=== PATIENT | female | born 1975 | race Caucasian/White ===

== ENCOUNTER → 2017-01-25 | Outpatient (CLI) | payer OTHER ==
[~2017-01-25] MED LIST: GLYB5TAB3 PO; MULT-65 PO; OXYC1SOL5 PO
== END ==
LOC: CPRE 10:55
PROVIDERS: ATTEND Obstetrics & Gynecology
DX: Z01.812 Encounter for preprocedural laboratory examination (principal); N92.0 Excessive and frequent menstruation with regular cycle

== ENCOUNTER 2017-01-31 06:07 | Observation (INO) | payer OTHER ==
[~2017-01-31] VITALS: Ht 175.3 cm; Wt 141.8 kg
[~2017-01-31 06:07] MED LIST changes: -GLYB5TAB3 PO; -OXYC1SOL5 PO
[2017-01-31] MEDS ORDERED: BUPIVACAINE/EPINEPHRINE 0.25% PF 30 ML VIAL ONE (06:55)
[2017-01-31] MEDS ORDERED: ESTROGENS CONJUGATED VAG CREA 15 APPL/30 GM TUBE ONE (06:56)
[2017-01-31] MEDS ORDERED: SUGAMMADEX SODIUM 200 MG/2 ML VIAL IV PUSH ONE ×2 (07:04)
[2017-01-31] MEDS ORDERED: ACETAMINOPHEN 1000 MG/100 ML 100 ML IV ONE (07:05)
[2017-01-31] MEDS ORDERED: LACTATED RINGER'S 1000 ML IV PRN (07:15)
[2017-01-31] MEDS ORDERED: INSULIN HUMAN REGULAR 1,000 UNITS/10 ML VIAL SQ PRN (07:15)
[2017-01-31] MEDS ORDERED: CHLORHEXIDINE GLUCONATE 2 % 1 PACK (2 CLOTHS) TOPICAL PRN (07:15)
[2017-01-31] MEDS ORDERED: METOPROLOL TARTRATE 25 MG TAB PO PRN (07:15)
[2017-01-31] MEDS ORDERED: SODIUM CHLORID 0.9% 500 ML IV PRN (07:15)
[2017-01-31] MEDS ORDERED: ceFAZolin 3,000 MG/NS 100 ML IV SCH ×2 (07:15)
[2017-01-31] MEDS ORDERED: POVIDONE IODINE 5% (ANTISEPSIS KIT) 4 APPLICATIONS EACH NARE PRN (07:15)
[2017-01-31] MEDS ORDERED: FAMOTIDINE 20 MG/2 ML VIAL ONE (07:34)
[2017-01-31] MEDS ORDERED: diphenhydrAMINE HCL 25 MG CAP PO PRN (11:30)
[2017-01-31] MEDS ORDERED: SODIUM CHLORIDE 0.9% FLUSH 10 ML FLUSH IV FLUSH PRN (11:30)
[2017-01-31] MEDS ORDERED: ONDANSETRON HCL 4 MG/2 ML VIAL IVP PRN (11:30)
[2017-01-31] MEDS ORDERED: oxyCODONE/ACETAMINOPHEN 5 MG/325 MG TAB PO PRN ×2 (11:30)
[2017-01-31] MEDS ORDERED: ZOLPIDEM TARTRATE 5 MG TAB PO PRN (11:30)
[2017-01-31] MEDS ORDERED: LORazepam 0.5 MG TAB PO PRN (11:30)
[2017-01-31] MEDS ORDERED: DO NOT ADM ANY ANTICOAGULANT DRUGS PRN (11:43)
--- NOTE | 2017-01-31 11:43 | HHI.PR ---
Immediate Post Op Note Procedure Date: Jan 31, 2017 Pre Op Diagnosis: (1) Ovarian mass, right (2) Premenopausal menorrhagia (3) Morbid obesity with BMI of 50.0-59.9, adult Post Op Diagnosis: (1) Ovarian mass, right (2) Premenopausal menorrhagia (3) Advanced maternal age in multigravida (4) Abdominal hernia Surgeon: Grace Robledo Stay Cutter(s): Elissa Correa MD Procedure: Exam under anesthesia, laparoscopic assisted vaginal hysterectomy, bilateral salpingectomy, right oopherectomy Findings: abdominal hernia, uterus sounded to 9 cm, bilateral tubes with evidence of prior ligation, bilateral ovaries with normal appearance. Abdominal hernia with omental adhesions Complications: none Specimen(s) removed: bilateral tubes,right ovary, uterus with cervix Anesthesia: General Drains: None Fluids: 4500mL IVF Urinary Output (mLs): 150 Patient to: PACU Patient Condition: Good Grace Robledo MD Jan 31, 2017 11:43
[2017-01-31] MEDS ORDERED: *MEPERIDINE 25 MG INJ VIAL PERIprocedural Use ONLY ONE (11:50)
[2017-01-31] MEDS: SODIUM CHLORIDE 0.9% FLUSH 10 ML FLUSH IV FLUSH SCH ×2 (12:00→21:00)
[2017-01-31] MEDS ORDERED: LIDOCAINE HCL 1% PF 5 ML SYRINGE OTHER ONE (12:00)
[2017-01-31] MEDS ORDERED: DEXAMETHASONE SOD PHOS 4 MG/ML VIAL IV ONE (12:00)
[2017-01-31] MEDS ORDERED: MIDAZOLAM HCL 2 MG/2 ML VIAL IV ONE (12:00)
[2017-01-31] MEDS ORDERED: PROPOFOL 200 MG/20 ML AMP IV ONE (12:00)
[2017-01-31] MEDS ORDERED: KETOROLAC TROMETHAMINE 30 MG/ML (IVP) VIAL IV PUSH ONE (12:00)
[2017-01-31] MEDS: LACTATED RINGER'S 1000 ML INJ 1,000 ML IV SCH ×2 (12:00→21:08)
[2017-01-31] MEDS ORDERED: PILL SPLITTER OTHER PRN (12:00)
[2017-01-31] MEDS ORDERED: ROCURONIUM INJ 50 MG/5 ML SYRINGE IV PUSH ONE (12:00)
[2017-01-31] MEDS ORDERED: ceFAZolin INJ 1,000 MG VIAL IV ONE (12:00)
[2017-01-31] MEDS ORDERED: GLYCOPYRROLATE 1 MG/5 ML SYRINGE IV PUSH ONE (12:00)
[2017-01-31] MEDS ORDERED: NEOSTIGMINE 5 MG/5 ML SYRINGE IV PUSH ONE (12:00)
[2017-01-31] MEDS ORDERED: LACTATED RINGER'S 1000 ML INJ 2,000 ML IV ONE (12:00)
[2017-01-31] MEDS ORDERED: ONDANSETRON HCL 4 MG/2 ML VIAL IV ONE (12:00)
[2017-01-31] MEDS: ACETAMINOPHEN 1000 MG/100 ML 100 ML IV SCH ×2 (12:15→18:19)
[2017-01-31 12:55] VITALS: BP 145/83; PULSE 75; RESP 16; TEMP 97.7; O2SAT 98
[2017-01-31] MEDS ORDERED: MORPHINE SULFATE 2 MG/ML INJ IV PRN (13:00)
[2017-01-31] MEDS ORDERED: NALOXONE HCL 0.4 MG/ML AMP IV PUSH PRN (14:30)
[2017-01-31 15:00] VITALS: BP 137/71; PULSE 79; RESP 20; O2SAT 97
[2017-01-31] MEDS: MORPHINE SULFATE 30 MG/30 ML PCA IV SCH ×2 (15:00→23:10)
[2017-01-31 16:07] VITALS: BP 118/61; PULSE 79; RESP 15; RESP 20; TEMP 98.1; O2SAT 96
[2017-01-31 17:30] VITALS: BP 123/69; PULSE 80; RESP 16; TEMP 98.2; O2SAT 96
[2017-01-31] MEDS: KETOROLAC TROMETHAMINE 30 MG/ML (IVP) VIAL IVP SCH (18:00)
[2017-01-31 20:00] VITALS: BP 113/63; PULSE 83; RESP 16; TEMP 98; O2SAT 99
[2017-01-31] MEDS ORDERED: DOCUSATE SODIUM 50 MG/SENNA 8.6 MG TAB PO SCH (21:00)
[2017-01-31] MEDS ORDERED: PCA - TOTAL MG MORPHINE DELIVERED PER SHIFT SCH (22:00)
[2017-02-01] VITALS: BP 112/55; PULSE 82; RESP 18; TEMP 98; O2SAT 95
[2017-02-01] MEDS: KETOROLAC TROMETHAMINE 30 MG/ML (IVP) VIAL IVP SCH ×2 (01:17→06:47)
[2017-02-01] MEDS: ACETAMINOPHEN 1000 MG/100 ML 100 ML IV SCH (02:25)
[2017-02-01 04:00] VITALS: BP 98/55; PULSE 74; RESP 16; TEMP 97.9; O2SAT 97
[2017-02-01 05:56] LABS: BASOPHIL % 0.1 % (0.0-2.0); HEMATOCRIT 32.8 % (35.0-46.0); HEMO FLAGS DIFF FINAL; LYMPH % 13.6 % (9.0-44.0); LYMPHOCYTE # 1.8 TH/MM3 (1.0-4.8); MEAN CELL VOLUME 84.6 FL (80.0-100.0); MEAN CORPUSCULAR HEMOGLOBIN 26.8 PG (27.0-34.0); MEAN CORPUSCULAR HGB CONC 31.7 % (32.0-36.0); MONO % 4.2 % (0.0-8.0); NEUT % 82.1 % (16.0-70.0); PLATELET COUNT 283 TH/MM3 (150-450); RED BLOOD COUNT 3.87 MIL/MM3 (4.00-5.30); RED CELL DISTRIBUTION WIDTH 15.5 % (11.6-17.2); WHITE BLOOD COUNT 13.4 TH/MM3 (4.0-11.0)
[2017-02-01 08:10] VITALS: BP 108/62; PULSE 78; RESP 16; TEMP 98.3
--- NOTE | 2017-02-01 08:54 | HHI.PR ---
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 Passing flatus, eating well, voided this am Objective Vital Signs Vital Signs Date Time Temp Pulse Resp B/P (MAP) Pulse Ox O2 Delivery O2 Flow Rate FiO2 02/01/17 08:10 98.3 78 16 108/62 (77) 02/01/17 04:00 97.9 74 16 98/55 (69) 97 02/01/17 00:00 98.0 82 18 112/55 (74) 95 01/31/17 23:10 16 01/31/17 20:00 98.0 83 16 113/63 (80) 99 01/31/17 18:39 16 01/31/17 17:30 98.2 80 16 123/69 (87) 96 01/31/17 16:07 20 01/31/17 16:07 98.1 79 15 118/61 (80) 96 01/31/17 15:00 79 20 137/71 (93) 97 01/31/17 15:00 15 01/31/17 13:57 17 01/31/17 12:55 97.7 75 16 145/83 (103) 98 01/31/17 12:23 98.7 70 13 149/74 (99) 100 Nasal Cannula 2 01/31/17 12:15 76 17 139/74 (95) 100 Nasal Cannula 2 01/31/17 12:00 73 16 140/75 (96) 100 Nasal Cannula 2 01/31/17 11:42 98.5 89 10 136/81 (99) 100 Nasal Cannula 2 I/O 01/31/17 01/31/17 01/31/17 02/01/17 02/01/17 02/01/17 07:00 15:00 23:00 07:00 15:00 23:00 Intake Total 115 ml 1046 ml Output Total 150 ml 250 ml 1000 ml Balance -35 ml -250 ml 46 ml Intake IV Total 115 ml 1046 ml Output Urine Total 150 ml 250 ml 1000 ml Result Diagram: 02/01/17 0505 Objective Remarks Chest is clear, regular rate and rhythm. Abdomen is soft and non-distended. Incision is clean and dry. Ext no CCE. A/P Assessment and Plan Post Op Day 1 Doing well D/C sr. operations manager, transition to po pain medication today. will reevaluate later today to see if ready for discharge Robledo,Grace To MD Feb 01, 2017 08:54
--- NOTE | 2017-02-01 09:12 | HHI.DCPOC ---
Discharge Care Plan Diagnosis: (1) S/P laparoscopic assisted vaginal hysterectomy (LAVH) (2) S/P right oophorectomy Your Health Problems Are: Incisions/drains Report Symptoms to Your Doctor -Temperature above 100.5 degrees -Redness, of incision or excessive or foul smelling drainage -Unusual pain or calf pain -Increased vaginal bleeding -Painful or difficulty urinating Goals to Promote Your Health * To prevent worsening of your condition and complications * To maintain your health at the optimal level Directions to Meet Your Goals Take your medications as prescribed Follow your dietary instruction Follow activity as directed Ensure plenty of rest for recovery Drink fluids for hydration Keep your appointments as scheduled Take your immunizations and boosters as scheduled If your symptoms worsen call your PCP, if no PCP go to Urgent Care Center or Emergency Room Smoking is Dangerous to Your Health. Avoid second hand smoke Call the 24-hour crisis hotline for domestic abuse at Grace Robledo MD Feb 01, 2017 09:12
--- NOTE | 2017-02-02 09:27 | MP ---
cc: GRACE ROBLEDO MD DATE OF SURGERY 01/31/2017 PREOPERATIVE DIAGNOSES 1. Abnormal uterine bleeding. 2. Right ovarian mass. 3. Morbid obesity. POSTOPERATIVE DIAGNOSES 4. Abnormal uterine bleeding. 5. Right ovarian mass. 6. Morbid obesity. 7. Abdominal hernia. INDICATION The patient is a 41-year-old with heavy uterine bleeding. During her workup for possible ablation she was found to have an ovarian 2 cm nodule on the right side. This did not resolve with repeat imaging. Given her heavy bleeding she did opt to have a hysterectomy, right salpingo-oophorectomy and left salpingectomy. SURGEON Grace Robledo MD EXECUTIVE LEGAL SECRETARY Elissa Correa MD PROCEDURE PERFORMED Examination under anesthesia, laparoscopically-assisted vaginal hysterectomy with right salpingo-oophorectomy and left salpingectomy. ANTIBIOTICS Ancef 3 grams IV given pre incision. Repeat dosing at the end of procedure. IV FLUIDS 500 ml of lactated Ringer. URINE OUTPUT 150 ml of clear yellow urine at the end of the case. ESTIMATED BLOOD LOSS 750 ml SPECIMEN Right ovary. Tubal segment left tube, uterus and cervix. COMPLICATIONS None COUNTS Correct times three. DEEP VENOUS THROMBOSIS PROPHYLAXIS SCDs to bilateral extremities. INTRAOPERATIVE FINDINGS Approximately 9 cm uterus non sounding. Ovary normal appearance bilaterally. Tubes with evidence of prior tubal ligation. Supracervical omental adhesion with a hernia to the left of midline only noted with insufflation of the abdomen. Normal liver edge. Appendix well visualized. PROCEDURE IN DETAIL After reviewing informed consent the patient was taken to operating room where general anesthesia was performed without complication. An OG tube was placed. The abdomen and perineum were prepped and draped in the normal sterile fashion. A bivalve speculum was placed in the vagina. A HUMI uterine manipulator was placed. A Mcneil was placed under sterile conditions. Gloves were changed, attention was turned to the abdomen. A left upper quadrant 5 mm incision was made at the mid clavicular line inferior to the costal margin. Direct visual entry was performed. The abdomen was then insufflated. Two accessory 5-mm ports were placed on the left lower quadrant and right lower quadrant approximately 2 cm superior and medial from the edge of the superior iliac spine. The right tube and ovary were removed with a harmonic by hydrodissecting the pelvic ligament in a lateral to medial transection to the cornuate region. The specimen was placed on posterior cul-de-sac. The right round ligament was transected with the Harmonic and the anterior leaf of the broad ligament was transected in a medial caudal fashion to create a bladder flap. The left side of the left tube was transected from the but left in place. The round ligament was transected and the anterior leaf of the broad ligament was from the posterior leaf. The dissection was started. There was a small bleeding vessel, this was cauterized with the harmonic as the tissue was thicker on this side. The further creation of the bladder flap was abandoned and the laparoscopic instruments were removed and attention was turned to the vaginal portion of the procedure. The abdomen was desufflated. A weighted speculum placed in the vagina and anterior retractor, the cervix was grasped with a single-tooth tenaculum. Marcaine 100% with epinephrine was used to hydrodissect the cervicovaginal tissue and the Bovie was used to partially assess the cervix. The uterine peritoneum was entered with Metzenbaum scissors. A lever in anterior colpotomy to evaluate and protect the bladder. Attention was turned to the posterior colpotomy. were used to enter posteriorly. The posterior peritoneum was tied to the vaginal mucosa. The right ovary and tube were grasped with [place] clamps and removed. Caio clamps were used to clamp the uterosacral ligaments bilaterally. Veliz scissors were used to transect and #0 Vicryl pop-off were used to perform a fixation stitch. These were tied to the cardinal ligament towards the cornual region of the uterus were used until the cornual region was reached. Foleys were clamped, cut and suture ligated with 0 Vicryl. Once the cornuate region was reached this was doubly ligated with a [id number] followed by a free tie. Inspection was performed and good hemostasis was noted. The posterior cuff was sutured with 0 Vicryl in a running locked fashion. The vaginal cuff was closed in a running fashion with 0 Vicryl in a vertical fashion followed by an imbricating layer. Good fascial length was noted. There was a mild posterior wall weakness suggestive of a rectocele. The patient was consented for repair of this. The camera was then inserted again. There was noted to be a small portion of a tubal segment remaining and this was removed with the harmonic. An accessory 5 mm port suprapubic was established to help remove the specimen as access to the left upper quadrant trocar had . Of note bariatric trocars were used for the procedure. Irrigation and suction was performed. Good hemostasis was noted. Radha was placed in the vaginal cuff and all pedicles. Good hemostasis was noted. The abdomen was desufflated. 4-0 Monocryl was used to close the four laparoscopic sites. The patient was removed from [facility] and placed in the supine position. She was transferred to PACU in stable condition. Grace Robledo MD PE/SIMON /6:40 PM /8:59 AM
== END 2017-02-01 13:05 | disposition home or self-care (01) ==
LOC: HSDC 06:07 → HSDI 11:32 → H1EA 12:28
PROVIDERS: ADMIT Obstetrics & Gynecology; ATTEND Obstetrics & Gynecology
DX: N92.4 Excessive bleeding in the premenopausal period (principal); N83.8 Other noninflammatory disorders of ovary, fallopian tube and broad ligament; N80.0 Endometriosis of uterus; N88.8 Other specified noninflammatory disorders of cervix uteri; D27.0 Benign neoplasm of right ovary; N72 Inflammatory disease of cervix uteri; K46.9 Unspecified abdominal hernia without obstruction or gangrene; E66.01 Morbid (severe) obesity due to excess calories; Z68.43 Body mass index [BMI] 50.0-59.9, adult; Z87.891 Personal history of nicotine dependence
CPT/HCPCS: 00840; 58552; 85025; 86850; 86900; 86901; 88307; 94150; 96374; 96375; 96376; G0378; J0131; J0690; J1100; J1885; J2175; J2250; J2270; J2405; J2710; J3010; J7120